=== PATIENT | female | born 1980 | race Caucasian/White ===

== ENCOUNTER 2022-10-03 22:15 | Inpatient (IN) ==
--- NOTE | 2022-10-03 22:43 | DR.EXTPAIN ---
HPI Time seen Time Seen by Provider: 10/03/22 22:43 PCP Primary Care Physician: FATOUMATA HPI Comment HPI Comment: Believes something was stuck under her lt middle fingernail nine days ago and swelling in finger has worsened leading to swelling in hand; unable to take the pain any longer; has noted some drainge; no fever, chills, numbness/tingling. Complaint/Symptoms Chief Complaint:: PT AMBULATORY IN ED WITH C/O LEFT MIDDLE FINGER PAIN. PT STATES SHE WAS CLEANING YARDS SUNDAY AND SOMETHING STUCK HER UNDER HER FINGERNAIL. FINGER SWOLLEN AND DRAINING. COVID-19 Coronavirus risk:travel/contact w/high risk person: No Has patient experienced Coronavirus symptoms: No Source History Provided: Patient Mode of arrival Mode of Arrival: Ambulatory Timing Onset of Chief Complaint: 10/01/22 PMH PMH Past Medical History: No Past Surgical History: Yes Surgical History: Ortho Surgery and Tonsillectomy Family History History of Family Medical Conditions: Yes Family Medical History: Diabetes Mellitus and Hypertension Social History Does patient currently use any type of tobacco product: Yes Have you used tobacco products in the last 12 months: Yes Type of Tobacco Use: Cigarettes Does any household member use tobacco: No Alcohol Use: Occasionally Do you use any recreational Drugs:: No Lives With: Family Lives Where: Home Travel Risk Coronavirus risk:travel/contact w/high risk person: No Has patient experienced Coronavirus symptoms: No Infectious screening In the last 2 months have you had wt loss of >10#?: NO Have you had fever, night sweats or hemotysis?: No Have you traveled outside the country in the last 6 months?: No Isolation: Standard ROS Review of Systems Constitutional: No Symptoms Reported Eyes: No Symptoms Reported ENTM: No Symptoms Reported Respiratoy: No Symptoms Reported Cardiovascular: No Symptoms Reported Gastrointestinal/Abdominal: No Symptoms Reported Genitourinary: No Symptoms Reported Neurological: No Symptoms Reported Integumentary: No Symptoms Reported Hematologic/Lymphatic: No Symptoms Reported Endocrine: No Symptoms Reported Psychiatric: No Symptoms Reported PE Vital Signs Vitals: Temperature 97.9 F Pulse Rate 79 Respiratory Rate 20 Blood Pressure [Left Arm] 173/95 Blood Pressure 218/111 O2 Sat by Pulse Oximetry 98 General Limitations: No Limitations General Appearance: Alert and In No Apparent Distress Head Head Exam: Normal Inspection Eyes Eye exam: Normal Appearance ENT ENT Exam: Normal Exam Neck Neck Exam: Normal Inspection Chest Chest Inspection: Normal Inspection Respiratory Respiratory Exam: Normal Lung Sounds Bilat Cardiovascular Cardiovascular Exam: Regular Rate and Normal Rhythm Abdominal Exam Abdominal Exam: Normal Inspection, Normal Bowel Sounds and Soft Extremities Extremities Exam: Tenderness, Normal Capillary Refill and Edema (lt hand swollen , hot with middle finger red with drainage and tenderness) Back Back Exam: Normal Inspection Neurological Neurological Exam: Alert, Oriented X3 and CN II-XII Intact Psychiatric Psychiatric Exam: Normal Affect and Normal Mood Skin Skin Exam: Warm, Dry, Intact and Normal Color COURSE Consultation Call Returned: 02:39 (Dr Gonsalez accepts admission.) ROR Labs Reviewed Result Diagrams: 10/03/22 22:54 10/03/22 22:54 Laboratory: 10/03/22 23:06 Finger - Left Middle Wound Gram Stain - Final WBC 14.9 X10^3/uL (3.6-10.0) H 10/03/22 22:54 RBC 4.32 X10^6/uL (3.5-5.4) 10/03/22 22:54 Hgb 12.9 g/dL (12.0-16.0) 10/03/22 22:54 Hct 37.4 % (36.0-47.0) 10/03/22 22:54 MCV 86.7 fL (80.0-100.0) 10/03/22 22:54 MCH 30.0 pg (27.0-34.0) 10/03/22 22:54 MCHC 34.6 g/dL (33.0-35.0) 10/03/22 22:54 RDW 14.7 % (11.6-16.5) 10/03/22 22:54 Plt Count 458 X10^3/uL (150.0-450.0) H 10/03/22 22:54 MPV 6.8 fL (7.4-11.0) L 10/03/22 22:54 Neut % (Auto) 74.3 % (42.0-75.0) 10/03/22 22:54 Lymph % (Auto) 19.4 % (21.0-51.0) L 10/03/22 22:54 [place] % (Auto) 4.6 % (0.0-13.0) 10/03/22 22:54 Eos % (Auto) 1.2 % (0.9-2.9) 10/03/22 22:54 Baso % (Auto) 0.5 % (0.2-1.0) 10/03/22 22:54 Neut # (Auto) 11.1 x10^3/uL (2.2-4.8) H 10/03/22 22:54 Lymph # (Auto) 2.9 X10^3/uL (1.3-2.9) 10/03/22 22:54 [place] # (Auto) 0.7 x10^3/uL (0.3-0.8) 10/03/22 22:54 Eos # (Auto) 0.2 x10^3/uL (0.0-0.2) 10/03/22 22:54 Baso # (Auto) 0.1 X10^3/uL (0.0-0.1) 10/03/22 22:54 Absolute Nucleated RBC 0.0 /100WBC 10/03/22 22:54 ESR 46 MM/HOUR (0-20) H 10/03/22 22:54 Sodium 141 mmol/L (136-145) 10/03/22 22:54 Corrected Sodium 142 mmol/L (136-145) 10/03/22 22:54 Potassium 2.8 mmol/L (3.5-5.1) L* 10/03/22 22:54 Chloride 102 mmol/L (98-107) 10/03/22 22:54 Carbon Dioxide 30.7 mmol/L (21-32) 10/03/22 22:54 BUN 15 mg/dL (7-18) 10/03/22 22:54 Creatinine 0.63 mg/dL (0.55-1.02) 10/03/22 22:54 Est GFR (MDRD) Af Amer > 60 (>60) 10/03/22 22:54 Est GFR (MDRD) Non-Af > 60 (>60) 10/03/22 22:54 Glucose 147 mg/dL (65-99) H 10/03/22 22:54 Calcium 8.9 mg/dL (8.5-10.1) 10/03/22 22:54 Corrected Calcium TNP 10/03/22 22:54 Total Bilirubin 0.10 mg/dL (0.2-1.0) L 10/03/22 22:54 AST 11 Units/L (15-37) L 10/03/22 22:54 ALT 13 Units/L (12-78) 10/03/22 22:54 Alkaline Phosphatase 134 Units/L (46-116) H 10/03/22 22:54 Total Protein 7.7 g/dL (6.4-8.2) 10/03/22 22:54 Albumin 3.7 g/dL (3.4-5.0) 10/03/22 22:54 Globulin 4.0 g/dL (2.5-4.5) 10/03/22 22:54 Albumin/Globulin Ratio 0.9 Ratio (1.1-2.1) L 10/03/22 22:54 XRAY XRAY Interpreted by: Radiologist X-ray Results: hand xr: There is no evidence of fracture or joint dislocation. Opioid Opioid Risk Tool Age (Doug box if 16-45): Yes History of Preadolescent Sexual Abuse: No Total: 1 Total Score Risk Category: Low Risk Copyright: Hieu OQUENDO predicting aberrant behaviors Discharge Plan Diagnosis Discharge Problem: Cellulitis of finger of left hand, Hypokalemia Discharge Plan Patient Disposition: 09 ADMITTED INPATIENT Condition: Stable Prescriptions: No Action [facility] Concerns: Post Hospitalization: new medications and changes needed to prevent readmission or further decline. Pt educated and given instructions on all concerns. Plan of Treatment: Continue with present treatment and follow up plan. Pt is to keep follow up appointment as instructed and take medications as ordered. Orders to Discharge Patient Discharge Orders: Discharge (Routine); Ordered 10/04/22 Ordered By: Anu Gonzalez Follow ups/Referrals Follow ups/Referrals: [facility],None [Primary Care Provider] - 3 days
[2022-10-03] MEDS ORDERED: NORCO 5/325 MG TAB PO ONE (22:48)
[2022-10-03] MEDS ORDERED: VANCOMYCIN IV *PREMIX 1 G/200 ML BAG 1 G/200 ML PIGGYBACK IV ONE ×2 (22:49→23:00)
[2022-10-03] MEDS ORDERED: NORCO 5/325 MG TAB ONE (22:59)
[2022-10-03 23:02] LABS: BASOPHILS # (AUTO) 0.1 X10^3/uL (0.0-0.1); BASOPHILS % (AUTO) 0.5 % (0.2-1.0); EOSINOPHILS # (AUTO) 0.2 x10^3/uL (0.0-0.2); EOSINOPHILS % (AUTO) 1.2 % (0.9-2.9); HEMATOCRIT 37.4 % (36.0-47.0); HEMOGLOBIN 12.9 g/dL (12.0-16.0); LYMPHOCYTES # (AUTO) 2.9 X10^3/uL (1.3-2.9); LYMPHOCYTES % (AUTO) 19.4 % (21.0-51.0); MEAN CORPUSCULAR HGB CONC 34.6 g/dL (33.0-35.0); MEAN CORPUSCULAR VOLUME 86.7 fL (80.0-100.0); MEAN PLATELET VOLUME 6.8 fL (7.4-11.0); MONOCYTES # (AUTO) 0.7 x10^3/uL (0.3-0.8); MONOCYTES % (AUTO) 4.6 % (0.0-13.0); NEUTROPHILS # (AUTO) 11.1 x10^3/uL (2.2-4.8); NEUTROPHILS % (AUTO) 74.3 % (42.0-75.0); PLATELET COUNT 458 X10^3/uL (150.0-450.0); RED BLOOD COUNT 4.32 X10^6/uL (3.5-5.4); RED CELL DISTRIBUTION WIDTH 14.7 % (11.6-16.5); WHITE BLOOD COUNT 14.9 X10^3/uL (3.6-10.0)
[2022-10-03 23:19] LABS: ALANINE AMINOTRANSFERASE 13 Units/L (12-78); ALBUMIN 3.7 g/dL (3.4-5.0); ALKALINE PHOSPHATASE 134 Units/L (46-116); ASPARTATE AMINO TRANSFERASE 11 Units/L (15-37); BLOOD UREA NITROGEN 15 mg/dL (7-18); CALCIUM 8.9 mg/dL (8.5-10.1); CARBON DIOXIDE 30.7 mmol/L (21-32); CHLORIDE 102 mmol/L (98-107); COR NA(FOR HYPERGLY) 142 mmol/L (136-145); CREATININE 0.63 mg/dL (0.55-1.02); GLUCOSE 147 mg/dL (65-99); SODIUM 141 mmol/L (136-145); TOTAL PROTEIN 7.7 g/dL (6.4-8.2); eGFR NON BLACK RACES > 60 (>60)
[2022-10-03 23:20] LABS: ERYTHROCYTE SEDIMENTATION RATE 46 MM/HOUR (0-20)
[2022-10-03 23:22] LABS: POTASSIUM 2.8 mmol/L (3.5-5.1)
[2022-10-03] MEDS ORDERED: K-DUR TAB 20 MEQ PO STA ×2 (23:29→23:32)
[2022-10-03] MEDS ORDERED: K-DUR TAB 20 MEQ PO ONE (23:39)
[2022-10-03] MEDS ORDERED: NS + KCL 40 MEQ/L 1,000 ML IV ONE (23:43)
[2022-10-04] MEDS: NS + KCL 40 MEQ/L 1,000 ML IV SCH ×3 (00:27→12:03)
--- NOTE | 2022-10-04 02:05 | RAD ---
STUDY: HAND, LEFTCOMPARISON: NoneHISTORY: PT STATES SHE WAS CLEANING YARDS SUNDAY AND SOMETHING STUCK HER UNDER HER FINGERNAIL. FINGER SWOLLEN AND DRAINING.FINDINGS:There is no evidence of fracture or joint dislocation.There is no evidence of an embedded radiopaque foreign body.However there is soft tissue swelling noted.IMPRESSION:There is no evidence of fracture or joint dislocation.Electronically signed by: Karan Long (Oct 04, 2022 02:03:40)
[2022-10-04] MEDS ORDERED: VANCOMYCIN IV *PREMIX 1 G/200 ML BAG 1 G/200 ML PIGGYBACK IV SCH (02:44)
[2022-10-04] MEDS ORDERED: PHARMACY CONSULT - VANCOMYCIN XX SCH (03:00)
[2022-10-04] MEDS ORDERED: NORCO 5/325 MG TAB ONE (03:36)
[2022-10-04] MEDS: NORCO 5/325 MG TAB PO PRN ×2 (03:45→07:51)
[2022-10-04 04:01] VITALS: BMI 27.0
[2022-10-04] MEDS ORDERED: CATAPRES TAB 0.1 MG PO ONE (04:28)
--- NOTE | 2022-10-04 04:45 | EKG ---
Test Reason : HYPERTENSION PROTOCOL Blood Pressure : */* mmHG Vent. Rate : 69 BPM Atrial Rate : 69 BPM P-R Int : 124 ms QRS Dur : 70 ms QT Int : 420 ms P-R-T Axes : 60 62 130 degrees QTc Int : 450 ms Normal sinus rhythm Possible Left atrial enlargement Cannot rule out Anterior infarct , age undetermined Abnormal ECG No previous ECGs available Confirmed by Trevon Quinonez ([id number]) on 10/04/2022 6:37:41 PM Referred By: Confirmed By: Trevon Quinonez
[2022-10-04] MEDS ORDERED: MORPHINE SULFATE INJ 2 MG INJ IVP PRN (05:06)
[2022-10-04] MEDS ORDERED: MORPHINE SULFATE INJ 2 MG INJ ONE (05:12)
[2022-10-04] MEDS ORDERED: APRESOLINE INJ 20 MG VIAL IVP ONE (05:40)
[2022-10-04] MEDS ORDERED: APRESOLINE INJ 20 MG VIAL ONE ×2 (05:51→08:36)
[2022-10-04 06:08] LABS: BASOPHILS # (AUTO) 0.1 X10^3/uL (0.0-0.1); EOSINOPHILS # (AUTO) 0.2 x10^3/uL (0.0-0.2); EOSINOPHILS % (AUTO) 1.3 % (0.9-2.9); HEMATOCRIT 34.5 % (36.0-47.0); HEMOGLOBIN 11.7 g/dL (12.0-16.0); LYMPHOCYTES # (AUTO) 4.6 X10^3/uL (1.3-2.9); LYMPHOCYTES % (AUTO) 34.6 % (21.0-51.0); MEAN CORPUSCULAR HEMOGLOBIN 29.4 pg (27.0-34.0); MEAN CORPUSCULAR HGB CONC 33.9 g/dL (33.0-35.0); MEAN CORPUSCULAR VOLUME 86.9 fL (80.0-100.0); MEAN PLATELET VOLUME 6.9 fL (7.4-11.0); MONOCYTES # (AUTO) 0.8 x10^3/uL (0.3-0.8); MONOCYTES % (AUTO) 5.8 % (0.0-13.0); NEUTROPHILS # (AUTO) 7.7 x10^3/uL (2.2-4.8); NEUTROPHILS % (AUTO) 57.3 % (42.0-75.0); PLATELET COUNT 419 X10^3/uL (150.0-450.0); RED BLOOD COUNT 3.97 X10^6/uL (3.5-5.4); RED CELL DISTRIBUTION WIDTH 14.4 % (11.6-16.5); WHITE BLOOD COUNT 13.4 X10^3/uL (3.6-10.0)
[2022-10-04 06:14] LABS: ALANINE AMINOTRANSFERASE 12 Units/L (12-78); ALBUMIN 3.1 g/dL (3.4-5.0); ALKALINE PHOSPHATASE 115 Units/L (46-116); ASPARTATE AMINO TRANSFERASE 10 Units/L (15-37); BLOOD UREA NITROGEN 9 mg/dL (7-18); CHLORIDE 107 mmol/L (98-107); COR CA(FOR HYPOALB) 8.7 mg/dL (8.5-10.1); CREATININE 0.47 mg/dL (0.55-1.02); GLUCOSE 94 mg/dL (65-99); MAGNESIUM 1.7 mg/dL (2.0-2.9); POTASSIUM 3.4 mmol/L (3.5-5.1); SODIUM 142 mmol/L (136-145); TOTAL PROTEIN 6.4 g/dL (6.4-8.2); eGFR NON BLACK RACES > 60 (>60)
[2022-10-04] MEDS ORDERED: POTASSIUM CHL 40 MEQ/NS 0.45% 500 ML IV PRN (07:05)
[2022-10-04] MEDS ORDERED: POTASSIUM CHL 60 MEQ/NS 0.45% 500 ML IV PRN (07:05)
[2022-10-04] MEDS ORDERED: K-RIDER 10 MEQ/NS 100 ML 10 MEQ/100 ML BAG IV PRN (07:05)
[2022-10-04] MEDS ORDERED: K-DUR TAB 20 MEQ PO PRN (07:05)
[2022-10-04] MEDS ORDERED: POTASSIUM CHLORIDE LIQ 20 MEQ UDC PO PRN (07:05)
[2022-10-04] MEDS ORDERED: KLOR-CON PO PRN (07:05)
[2022-10-04] MEDS ORDERED: MICRO K EXTEN CAP 10 MEQ PO PRN (07:05)
[2022-10-04] MEDS: APRESOLINE INJ 20 MG VIAL IVP SCH ×4 (08:30→20:19)
[2022-10-04] MEDS: VANCOMYCIN IV *PREMIX 1 G/200 ML BAG 1 G/200 ML PIGGYBACK IV SCH ×2 (08:32→20:19)
[2022-10-04] MEDS ORDERED: APRESOLINE INJ 20 MG VIAL IVP PRN (08:33)
[2022-10-04] MEDS ORDERED: DILAUDID INJ ONE (08:36)
[2022-10-04] MEDS: DILAUDID INJ IVP PRN ×4 (08:39→20:20)
[2022-10-04] MEDS: ZOFRAN INJ 4 MG VIAL IVP PRN ×2 (08:42→17:23)
[2022-10-04] MEDS ORDERED: VANCOMYCIN IV *PREMIX 750 mg/150 ML BAG 750 MG/150 ML PIGGYBACK IV SCH (09:00)
--- NOTE | 2022-10-04 14:02 | CT ---
HISTORYLEFT HAND 3RD DIGIT FOREIGN BODY, EDEMA, REDNESS AND PAINSTUDYUPPER EXT WITH CONCOMPARISONLeft hand radiograph from 1 day prior.TECHNIQUECT of the left upper extremity with contrast with sagittal and coronal reformats. [id number] is from the distal arm through the distal phalanges dose reduction techniques including Automated Exposure Control (AEC) and adjustment of mA and kV were utilized.FINDINGSPatient's hand is oblique within the field of view limiting evaluation. There is moderate motion artifact at the distal phalanx which limits evaluation. There is soft tissue swelling at the 3rd distal phalanx image 26 series 5. No discernible radiopaque foreign body in this location. No discernible abscess. No acute fracture, malalignment, or aggressive osseous lesion.IMPRESSIONLimited study as above. No discernible radiopaque foreign body or abscess. Consider repeat study if patient is able to hold still. Soft tissue swelling about the distal 3rd digit may be due to cellulitis.Electronically signed by: Steven Alvarez (Oct 04, 2022 14:00:50)
--- NOTE | 2022-10-04 15:18 | DR.H&P ---
H&P History & Physical for Day of: H&P Date: 10/04/22 Chief Complaint Chief Complaint: left middle finger pain and swelling Allergies Allergies Allergy/AdvReac Type Severity Reaction Status Date / Time No Known Drug Allergies Allergy Verified 01/12/18 04:16 History of Present Illness History of Present Illness: Pt is a 41 year old female with no past medical history presenting after having worsening pain and swelling in her left middle finger. She reports symptoms started on Sunday when she was outside and felt like something like a stick or twig punctured her finger. Since she has had pain. Noticed yesterday swelling, redness, and some discharge. Labs/imaging: Wbc 13.4, Hgb 11.7, Plt 419, Na 142, K 3.4, Creatinine 0.47, Glucose 94, Magnesium 1.7, Wound culture pending. Hand XR: soft tissue swelling noted. CT of the hand was obtained that revealed: No discernible radiopaque foreign body or abscess. Consider repeat study if patient is able to hold still. Soft tissue swelling about the distal 3rd digit may be due to cellulitis. Pt was started on IV anti biotics: Vancomycin. IV dilaudid prn for pain. Surgery consulted for further evaluation. Continue to closely monitor and follow up labs. Past Surgical History Surgical History: Ortho Surgery Family History Family Medical History: Diabetes Mellitus Social History Does patient currently use any type of tobacco product: Yes Have you used tobacco products in the last 12 months: Yes Type of Tobacco Use: Cigarettes Does any household member use tobacco: No Alcohol Use: None Drug Use: None Medications Home Medications: No Known Drug Allergies Allergy (Verified 01/12/18 04:16) CONTINUE taking the following medications NK 10/03/22 [History] Labs Result Diagrams: 10/04/22 05:45 10/04/22 05:45 Labs: 10/03/22 23:06 Finger - Left Middle Wound Gram Stain - Final Laboratory WBC 13.4 X10^3/uL (3.6-10.0) H 10/04/22 05:45 RBC 3.97 X10^6/uL (3.5-5.4) 10/04/22 05:45 Hgb 11.7 g/dL (12.0-16.0) L 10/04/22 05:45 Hct 34.5 % (36.0-47.0) L 10/04/22 05:45 MCV 86.9 fL (80.0-100.0) 10/04/22 05:45 MCH 29.4 pg (27.0-34.0) 10/04/22 05:45 MCHC 33.9 g/dL (33.0-35.0) 10/04/22 05:45 RDW 14.4 % (11.6-16.5) 10/04/22 05:45 Plt Count 419 X10^3/uL (150.0-450.0) 10/04/22 05:45 MPV 6.9 fL (7.4-11.0) L 10/04/22 05:45 Neut % (Auto) 57.3 % (42.0-75.0) 10/04/22 05:45 Lymph % (Auto) 34.6 % (21.0-51.0) 10/04/22 05:45 [place] % (Auto) 5.8 % (0.0-13.0) 10/04/22 05:45 Eos % (Auto) 1.3 % (0.9-2.9) 10/04/22 05:45 Baso % (Auto) 1.0 % (0.2-1.0) 10/04/22 05:45 Neut # (Auto) 7.7 x10^3/uL (2.2-4.8) H 10/04/22 05:45 Lymph # (Auto) 4.6 X10^3/uL (1.3-2.9) H 10/04/22 05:45 [place] # (Auto) 0.8 x10^3/uL (0.3-0.8) 10/04/22 05:45 Eos # (Auto) 0.2 x10^3/uL (0.0-0.2) 10/04/22 05:45 Baso # (Auto) 0.1 X10^3/uL (0.0-0.1) 10/04/22 05:45 Absolute Nucleated RBC 0.0 /100WBC 10/04/22 05:45 ESR 46 MM/HOUR (0-20) H 10/03/22 22:54 Sodium 142 mmol/L (136-145) 10/04/22 05:45 Corrected Sodium TNP 10/04/22 05:45 Potassium 3.4 mmol/L (3.5-5.1) L 10/04/22 05:45 Chloride 107 mmol/L (98-107) 10/04/22 05:45 Carbon Dioxide 28.0 mmol/L (21-32) 10/04/22 05:45 BUN 9 mg/dL (7-18) 10/04/22 05:45 Creatinine 0.47 mg/dL (0.55-1.02) L 10/04/22 05:45 Est GFR (MDRD) Af Amer > 60 (>60) 10/04/22 05:45 Est GFR (MDRD) Non-Af > 60 (>60) 10/04/22 05:45 Glucose 94 mg/dL (65-99) 10/04/22 05:45 Calcium 8.0 mg/dL (8.5-10.1) L 10/04/22 05:45 Corrected Calcium 8.7 mg/dL (8.5-10.1) 10/04/22 05:45 Magnesium 1.7 mg/dL (2.0-2.9) L 10/04/22 05:45 Total Bilirubin 0.10 mg/dL (0.2-1.0) L 10/04/22 05:45 AST 10 Units/L (15-37) L 10/04/22 05:45 ALT 12 Units/L (12-78) 10/04/22 05:45 Alkaline Phosphatase 115 Units/L (46-116) 10/04/22 05:45 Total Protein 6.4 g/dL (6.4-8.2) 10/04/22 05:45 Albumin 3.1 g/dL (3.4-5.0) L 10/04/22 05:45 Globulin 3.3 g/dL (2.5-4.5) 10/04/22 05:45 Albumin/Globulin Ratio 0.9 Ratio (1.1-2.1) L 10/04/22 05:45 Review of Systems Constitutional: No Symptoms Reported Eyes: No Symptoms Reported ENT: No Symptoms Reported Respiratory: No Symptoms Reported Cardiovascular: No Symptoms Reported Gastrointestinal: No Symptoms Reported Genitourinary: No Symptoms Reported Musculoskeletal: Hand Pain (Left 3rd digit pain, redness, swelling) Skin: No Symptoms Reported Neurological: No Symptoms Reported Physical Exam Vital Signs: Temperature 97.8 F Pulse Rate [Right Brachial] 84 Pulse Rate 79 Respiratory Rate 18 Blood Pressure [Left Arm] 144/68 Blood Pressure 218/111 O2 Sat by Pulse Oximetry 98 Oriented: Normal Eyes: Normal Ear: Normal Nose: Normal Throat: Normal Respiratory: Clear Throughout Cardiovascular: Normal : Normal Auscultation: Bowel Sounds: Normal Palpation: Normal Tenderness: Normal Skin: Normal Musculoskeletal: Hand (Left 3rd digit tenderness, erythema, and edema) Psychiatric: Normal Mood Description: Calm and Appropriate Affect: Normal Speech Pattern: Clear and Appropriate Assessment/Plan (1) Cellulitis of finger of left hand: Status: Acute Plan: Antibiotics: IV Vancomycin Wound culture pending Surgery consulted Review H&P Reviewed: Yes Patient was examined?: Yes
[2022-10-04] MEDS ORDERED: ADACEL or BOOSTRIX TDaP VACCINE IM ONE (19:37)
[2022-10-04] MEDS ORDERED: MARCAINE 0.25% INJ ONE (20:28)
[2022-10-04] MEDS ORDERED: BETADINE SOLN ONE (20:29)
[2022-10-04] MEDS ORDERED: FENTANYL VIAL INJ 100 mcg ONE (20:30)
[2022-10-04] MEDS ORDERED: DIPRIVAN VIAL 20 ML ONE (20:30)
[2022-10-04] MEDS ORDERED: VERSED ONE (20:30)
[2022-10-04] MEDS ORDERED: LR 1,000 ML IV 1,000 ML IV ONE (21:01)
--- NOTE | 2022-10-04 21:16 | DR.CONSULT ---
CONSULT Consultation for Day of: Date: 10/04/22 Chief Complaint Chief Complaint: Cellulitis, infected left middle finger. Allergies Allergies Allergy/AdvReac Type Severity Reaction Status Date / Time No Known Drug Allergies Allergy Verified 01/12/18 04:16 History of Present Illness History of Present Illness: 41 year old female who was working in her yard 3 days ago and had a puncture with presumably a piece of wood or stick while she was working in the garden. She has had since significant swelling ,redness and significant discloratio of the skin of the left long finger especially on the volar surface. She denies diabetes. She does smoke. She denies drug use. Past Surgical History Surgical History: Ortho Surgery Family History Family Medical History: Diabetes Mellitus Social History Does patient currently use any type of tobacco product: Yes Have you used tobacco products in the last 12 months: Yes Type of Tobacco Use: Cigarettes Does any household member use tobacco: No Alcohol Use: None Drug Use: None Medications Home Medications: No Known Drug Allergies Allergy (Verified 01/12/18 04:16) CONTINUE taking the following medications NK 10/03/22 [History] Review of Systems Constitutional: See HPI Eyes: No Symptoms Reported ENT: No Symptoms Reported Respiratory: No Symptoms Reported Cardiovascular: No Symptoms Reported Gastrointestinal: No Symptoms Reported Genitourinary: No Symptoms Reported Musculoskeletal: No Symptoms Reported Skin: See HPI Neurological: No Symptoms Reported Physical Exam Vital Signs: Temperature 98.6 F Pulse Rate [Right Brachial] 62 Pulse Rate 79 Respiratory Rate 18 Blood Pressure [Left Arm] 170/75 Blood Pressure 218/111 O2 Sat by Pulse Oximetry 96 Oriented: Normal, Time, Person, Place and Other (appears to be in pain. ) Eyes: Normal Ear: Normal Nose: Normal Throat: Normal Respiratory: Clear Throughout Cardiovascular: Normal : Normal Auscultation: Bowel Sounds: Normal Palpation: Normal Tenderness: Normal Skin: Other (see description left middle finger above ) Musculoskeletal: Normal Psychiatric: Anxiety Mood Description: Fearful and Anxious Affect: Normal Speech Pattern: Clear Plan (1) Cellulitis of finger of left hand: Status: Acute Narrative Support Text: Continue IV antibiotics, incise and drain left middle finger. CT and plain films do show any obvious foreign bodies in the left middle finger
--- NOTE | 2022-10-04 21:36 | OR.IMMED ---
IMMEDIATE POST-OP NOTE Immediate Post-Op Note Pre-Op Diagnosis: cellulitis left long finger Post-Op Diagnosis: cellulitis left long finger with abscess of the volar distal phalanx subcutaneous tissue Procedure: Incision, drainage and debridement left long finger Description of Procedure: see operative summary Surgeon/Flat Cutter: Gabino Findings: as above Estimated Blood Loss: minimal Complications: none Progress Notes: Return to floor, continue Iv antibiotics, dressing changes left middle finger daily Final Diagnosis: as above
--- NOTE | 2022-10-05 01:07 | DR.OPNOTE ---
OP NOTE Pre-Op Diagnosis: abscess / cellulitis left middle finger Post-Op Diagnosis: same Procedure Date Date Of Procedure: 10/05/22 Procedure: PROCEDURE : INCISE AND DRAIN ABSCESS LEFT MIDDLE FINGER, DEBRIDE LEFT MIDDLE FINGER. NARRATIVE : Patient was taken to the operative suite and placed in the Supine position. The patient was given intravenous sedation supervised by myself. Time out for the procedure obtained . An Esmark used to exsanguinate the left arm and the volar surface of the skin of the distal phalanx of the middle finger opened with a number 15 knife blade and gross pus evacuated . Cultures were obtained. This appeared to go down to the bone of the distal phalanx. Hemostasis obtained with electrocautery. The necrotic skin of the distal middle finger was debrided sharply as an excisional debridement . The abscess cavity packed with 1/4 inch Nu gauze packing and a bulk dressing applied to the left hand. Patient taken back to her room to continue IV antibiotics and daily dressing changes. Type of Anesthesia: Local (0.5 % plain Marcaine ) Anesthesia Comment: plus MAC Findings: abscess volar distal abscess left middle finger with cellulitis left middle finger and necrotic skin. Specimen/Pathology: cultures Type of Fluids Used:: Lactated Ringers EBL: minimal Cultures: yes Complications:: none Needle/Sponge Count:: correct Disposition/Condition: Pt. tolerated procedure without difficulty. Taken back to her room in stable condition.
[2022-10-05] MEDS: NS + KCL 40 MEQ/L 1,000 ML IV SCH ×3 (03:18→14:02)
[2022-10-05] MEDS: APRESOLINE INJ 20 MG VIAL IVP SCH ×6 (03:18→22:02)
[2022-10-05] MEDS: DILAUDID INJ IVP PRN ×5 (03:18→22:22)
[2022-10-05 05:01] LABS: BASOPHILS # (AUTO) 0.1 X10^3/uL (0.0-0.1); BASOPHILS % (AUTO) 0.6 % (0.2-1.0); EOSINOPHILS # (AUTO) 0.1 x10^3/uL (0.0-0.2); EOSINOPHILS % (AUTO) 0.6 % (0.9-2.9); HEMATOCRIT 32.4 % (36.0-47.0); HEMOGLOBIN 11.1 g/dL (12.0-16.0); LYMPHOCYTES % (AUTO) 33.3 % (21.0-51.0); MEAN CORPUSCULAR HEMOGLOBIN 29.7 pg (27.0-34.0); MEAN CORPUSCULAR HGB CONC 34.1 g/dL (33.0-35.0); MEAN CORPUSCULAR VOLUME 87.2 fL (80.0-100.0); MONOCYTES # (AUTO) 0.7 x10^3/uL (0.3-0.8); MONOCYTES % (AUTO) 5.6 % (0.0-13.0); NEUTROPHILS # (AUTO) 7.1 x10^3/uL (2.2-4.8); NEUTROPHILS % (AUTO) 59.9 % (42.0-75.0); PLATELET COUNT 439 X10^3/uL (150.0-450.0); RED BLOOD COUNT 3.72 X10^6/uL (3.5-5.4); RED CELL DISTRIBUTION WIDTH 14.9 % (11.6-16.5); WHITE BLOOD COUNT 11.9 X10^3/uL (3.6-10.0)
[2022-10-05 05:14] LABS: ALANINE AMINOTRANSFERASE 12 Units/L (12-78); ALKALINE PHOSPHATASE 113 Units/L (46-116); ASPARTATE AMINO TRANSFERASE 10 Units/L (15-37); BLOOD UREA NITROGEN 7 mg/dL (7-18); CALCIUM 8.6 mg/dL (8.5-10.1); CARBON DIOXIDE 26.3 mmol/L (21-32); CHLORIDE 104 mmol/L (98-107); COR CA(FOR HYPOALB) 9.4 mg/dL (8.5-10.1); CREATININE 0.48 mg/dL (0.55-1.02); GLUCOSE 103 mg/dL (65-99); POTASSIUM 3.3 mmol/L (3.5-5.1); SODIUM 138 mmol/L (136-145); TOTAL PROTEIN 6.3 g/dL (6.4-8.2); eGFR NON BLACK RACES > 60 (>60)
[2022-10-05] MEDS: ZOFRAN INJ 4 MG VIAL IVP PRN ×3 (07:41→22:30)
[2022-10-05] MEDS: LOVENOX INJ 40 MG SYR SC SCH (08:17)
[2022-10-05] MEDS ORDERED: PHARMACY COMMENT IV NR (08:30)
[2022-10-05 09:10] LABS: CREATININE 0.44 mg/dL (0.55-1.02); VANCOMYCIN,TROUGH 4.8 ug/mL (15-20)
[2022-10-05] MEDS: VANCOMYCIN IV *PREMIX 1 G/200 ML BAG 1 G/200 ML PIGGYBACK IV SCH ×3 (09:52→22:00)
--- NOTE | 2022-10-05 12:46 | PCM.PROG ---
Progress Note Progress Note for Day of Date of Exam: 10/05/22 Subjective Subjective: Pt is a 41 year old female admitted for abscess and cellulitis of the left 3rd finger. She is s/p incision and drainage. This morning she is resting in bed comfortably. Labs/imaging: Wbc 11.9, Hgb 11.1, Plt 439, Na 138, K 3.3, Creatinine 0.48, Glucose 103, Wound culture pending. CT of the hand was obtained that revealed: No discernible radiopaque foreign body or abscess. Soft tissue swelling about the distal 3rd digit may be due to cellulitis. Pt is currently receiving IV antibiotics: Vancomycin. IV dilaudid prn for pain. Surgery following. Will need continued antibiotics, wound care, and dressing changes. Continue to closely monitor and follow up labs. Past Medical Family Social History Allergies: Allergies No Known Drug Allergies Allergy (Verified 01/12/18 04:16) Review of Systems ROS changes noted: see HPI Vital Signs and I&O's Vital Signs: Temperature 98.4 F Pulse Rate [Right Brachial] 72 Pulse Rate 79 Respiratory Rate 18 Blood Pressure [Left Arm] 154/70 Blood Pressure 218/111 O2 Sat by Pulse Oximetry 95 Intake and Output: Intake & Output 10/02/22 10/03/22 10/04/22 10/05/22 23:59 23:59 23:59 23:59 Intake Total 2531 / 2531 1275 / 1275 Output Total 500 / 500 Balance 2030 / 2030 1275 / 1275 Physical Exam Oriented: Normal, Time, Person, Place and Other (appears to be in pain. ) Eyes: Normal Ear: Normal Nose: Normal Throat: Normal Respiratory: Normal Cardiovascular: Normal : Normal Auscultation: Bowel Sounds: Normal Tenderness: Normal Skin: Other (left middle finger wound dressing) Musculoskeletal: Normal Psychiatric: Normal Mood Description: Calm Affect: Normal Speech Pattern: Clear and Appropriate Laboratory and Diagnostics Result Diagrams: 10/05/22 04:28 10/05/22 08:40 Labs: 10/03/22 23:19 Blood Blood Culture - Preliminary 10/03/22 23:13 Blood Blood Culture - Preliminary 10/03/22 23:06 Finger - Left Middle Wound Gram Stain - Final 10/03/22 23:06 Finger - Left Middle Wound Culture - Preliminary 10/04/22 21:23 Finger - Left Middle Wound Gram Stain - Final Laboratory WBC 11.9 X10^3/uL (3.6-10.0) H 10/05/22 04: RBC 3.72 X10^6/uL (3.5-5.4) 10/05/22 04: Hgb 11.1 g/dL (12.0-16.0) L 10/05/22 04: Hct 32.4 % (36.0-47.0) L 10/05/22 04: MCV 87.2 fL (80.0-100.0) 10/05/22 04: MCH 29.7 pg (27.0-34.0) 10/05/22 04: MCHC 34.1 g/dL (33.0-35.0) 10/05/22 04: RDW 14.9 % (11.6-16.5) 10/05/22 04: Plt Count 439 X10^3/uL (150.0-450.0) 10/05/22 04: MPV 7.0 fL (7.4-11.0) L 10/05/22 04: Neut % (Auto) 59.9 % (42.0-75.0) 10/05/22 04: Lymph % (Auto) 33.3 % (21.0-51.0) 10/05/22 04: [place] % (Auto) 5.6 % (0.0-13.0) 10/05/22 04: Eos % (Auto) 0.6 % (0.9-2.9) L 10/05/22 04: Baso % (Auto) 0.6 % (0.2-1.0) 10/05/22 04:28 Neut # (Auto) 7.1 x10^3/uL (2.2-4.8) H 10/05/22 04:28 Lymph # (Auto) 4.0 X10^3/uL (1.3-2.9) H 10/05/22 04:28 [place] # (Auto) 0.7 x10^3/uL (0.3-0.8) 10/05/22 04: Eos # (Auto) 0.1 x10^3/uL (0.0-0.2) 10/05/22 04:28 Baso # (Auto) 0.1 X10^3/uL (0.0-0.1) 10/05/22 04:28 Absolute Nucleated RBC 0.0 /100WBC 10/05/22 04:28 ESR 46 MM/HOUR (0-20) H 10/03/22 22:54 Sodium 138 mmol/L (136-145) 10/05/22 04:28 Corrected Sodium TNP 10/05/22 04:28 Potassium 3.3 mmol/L (3.5-5.1) L 10/05/22 04:28 Chloride 104 mmol/L (98-107) 10/05/22 04:28 Carbon Dioxide 26.3 mmol/L (21-32) 10/05/22 04:28 BUN 7 mg/dL (7-18) 10/05/22 04:28 Creatinine 0.44 mg/dL (0.55-1.02) L 10/05/22 08:40 Est GFR (MDRD) Af Amer > 60 (>60) 10/05/22 04:28 Est GFR (MDRD) Non-Af > 60 (>60) 10/05/22 04:28 Glucose 103 mg/dL (65-99) H 10/05/22 04:28 Calcium 8.6 mg/dL (8.5-10.1) 10/05/22 04:28 Corrected Calcium 9.4 mg/dL (8.5-10.1) 10/05/22 04:28 Magnesium 1.7 mg/dL (2.0-2.9) L 10/04/22 05:45 Total Bilirubin 0.20 mg/dL (0.2-1.0) 10/05/22 04:28 AST 10 Units/L (15-37) L 10/05/22 04:28 ALT 12 Units/L (12-78) 10/05/22 04:28 Alkaline Phosphatase 113 Units/L (46-116) 10/05/22 04:28 Total Protein 6.3 g/dL (6.4-8.2) L 10/05/22 04:28 Albumin 3.0 g/dL (3.4-5.0) L 10/05/22 04:28 Globulin 3.3 g/dL (2.5-4.5) 10/05/22 04:28 Albumin/Globulin Ratio 0.9 Ratio (1.1-2.1) L 10/05/22 04:28 Vancomycin Trough 4.8 ug/mL (15-20) L 10/05/22 08:40 Plan (1) Cellulitis of finger of left hand: Status: Acute Plan: Antibiotics: IV Vancomycin Wound culture pending Surgery consulted (2) Cellulitis and abscess of finger, unspecified: Status: Acute
--- NOTE | 2022-10-05 17:08 | NOTE.SOAP ---
Soap Note Note for Day of Date of Exam: 10/05/22 Subjective Data Subjective Data: S/p incision and drainage of abscess of the volar distal tuft of the left middle finger and s/p debridement of necrotic skin of this finger. Resting comfortably this AM. Objective Data Temperature: 98.3 F Pulse Rate: 70 Respiratory Rate: 18 Blood Pressure: 154/70 O2 Sat by Pulse Oximetry: 96 Objective Data: Dressing intact left hand. WBC=11.1 Assessment Assessment: Discussed dressing changes to be done daily with the nursing staff. Discussed findings with . Plan Plan: Continue IV antibiotics and daily dressing changes over the weekend .
[2022-10-06] MEDS: APRESOLINE INJ 20 MG VIAL IVP SCH ×6 (00:33→20:35)
[2022-10-06] MEDS: NS + KCL 40 MEQ/L 1,000 ML IV SCH ×4 (03:04→20:34)
[2022-10-06] MEDS: DILAUDID INJ IVP PRN ×5 (03:04→22:00)
[2022-10-06] MEDS ORDERED: PHARMACY COMMENT IV ONE (05:30)
[2022-10-06 06:10] LABS: BASOPHILS # (AUTO) 0.1 X10^3/uL (0.0-0.1); BASOPHILS % (AUTO) 0.6 % (0.2-1.0); EOSINOPHILS % (AUTO) 0.4 % (0.9-2.9); HEMATOCRIT 34.6 % (36.0-47.0); HEMOGLOBIN 11.7 g/dL (12.0-16.0); LYMPHOCYTES # (AUTO) 3.5 X10^3/uL (1.3-2.9); LYMPHOCYTES % (AUTO) 32.1 % (21.0-51.0); MEAN CORPUSCULAR HEMOGLOBIN 29.8 pg (27.0-34.0); MEAN CORPUSCULAR HGB CONC 33.9 g/dL (33.0-35.0); MEAN CORPUSCULAR VOLUME 87.8 fL (80.0-100.0); MONOCYTES # (AUTO) 0.7 x10^3/uL (0.3-0.8); MONOCYTES % (AUTO) 6.7 % (0.0-13.0); NEUTROPHILS # (AUTO) 6.5 x10^3/uL (2.2-4.8); NEUTROPHILS % (AUTO) 60.2 % (42.0-75.0); PLATELET COUNT 445 X10^3/uL (150.0-450.0); RED BLOOD COUNT 3.93 X10^6/uL (3.5-5.4); RED CELL DISTRIBUTION WIDTH 14.7 % (11.6-16.5); WHITE BLOOD COUNT 10.8 X10^3/uL (3.6-10.0)
[2022-10-06 06:15] LABS: CREATININE 0.51 mg/dL (0.55-1.02); VANCOMYCIN,TROUGH 13.4 ug/mL (15-20)
[2022-10-06 06:31] LABS: ALANINE AMINOTRANSFERASE 13 Units/L (12-78); ALBUMIN 2.8 g/dL (3.4-5.0); ALKALINE PHOSPHATASE 109 Units/L (46-116); ASPARTATE AMINO TRANSFERASE 9 Units/L (15-37); BLOOD UREA NITROGEN 8 mg/dL (7-18); CALCIUM 8.2 mg/dL (8.5-10.1); CARBON DIOXIDE 24.5 mmol/L (21-32); CHLORIDE 106 mmol/L (98-107); COR CA(FOR HYPOALB) 9.2 mg/dL (8.5-10.1); COR NA(FOR HYPERGLY) 140 mmol/L (136-145); GLUCOSE 122 mg/dL (65-99); POTASSIUM 3.8 mmol/L (3.5-5.1); SODIUM 139 mmol/L (136-145); TOTAL PROTEIN 6.2 g/dL (6.4-8.2); eGFR NON BLACK RACES > 60 (>60)
[2022-10-06] MEDS: ZOFRAN INJ 4 MG VIAL IVP PRN ×2 (09:20→22:00)
[2022-10-06] MEDS: VANCOMYCIN IV *PREMIX 1 G/200 ML BAG 1 G/200 ML PIGGYBACK IV SCH ×3 (09:20→22:00)
[2022-10-06] MEDS: LOVENOX INJ 40 MG SYR SC SCH (09:20)
[2022-10-06] MEDS: MAGNESIUM SULFATE 1 GRAM/100 mL PREMIX 1 G/100 ML BAG IV PRN ×2 (22:02→23:03)
[2022-10-07] MEDS: APRESOLINE INJ 20 MG VIAL IVP SCH ×7 (00:35→23:28)
[2022-10-07] MEDS: DILAUDID INJ IVP PRN ×4 (04:09→21:28)
[2022-10-07 05:17] LABS: BASOPHILS # (AUTO) 0.1 X10^3/uL (0.0-0.1); EOSINOPHILS # (AUTO) 0.1 x10^3/uL (0.0-0.2); EOSINOPHILS % (AUTO) 1.1 % (0.9-2.9); HEMATOCRIT 32.2 % (36.0-47.0); HEMOGLOBIN 11.2 g/dL (12.0-16.0); LYMPHOCYTES # (AUTO) 3.7 X10^3/uL (1.3-2.9); LYMPHOCYTES % (AUTO) 38.1 % (21.0-51.0); MEAN CORPUSCULAR HEMOGLOBIN 29.9 pg (27.0-34.0); MEAN CORPUSCULAR HGB CONC 34.6 g/dL (33.0-35.0); MEAN CORPUSCULAR VOLUME 86.5 fL (80.0-100.0); MEAN PLATELET VOLUME 6.6 fL (7.4-11.0); MONOCYTES # (AUTO) 0.7 x10^3/uL (0.3-0.8); MONOCYTES % (AUTO) 7.4 % (0.0-13.0); NEUTROPHILS # (AUTO) 5.1 x10^3/uL (2.2-4.8); NEUTROPHILS % (AUTO) 52.4 % (42.0-75.0); PLATELET COUNT 445 X10^3/uL (150.0-450.0); RED BLOOD COUNT 3.73 X10^6/uL (3.5-5.4); RED CELL DISTRIBUTION WIDTH 14.8 % (11.6-16.5); WHITE BLOOD COUNT 9.8 X10^3/uL (3.6-10.0)
[2022-10-07 05:33] LABS: ALANINE AMINOTRANSFERASE 11 Units/L (12-78); ALBUMIN 2.8 g/dL (3.4-5.0); ALKALINE PHOSPHATASE 96 Units/L (46-116); ASPARTATE AMINO TRANSFERASE 6 Units/L (15-37); BLOOD UREA NITROGEN 5 mg/dL (7-18); CALCIUM 7.8 mg/dL (8.5-10.1); CARBON DIOXIDE 24.5 mmol/L (21-32); CHLORIDE 108 mmol/L (98-107); COR CA(FOR HYPOALB) 8.8 mg/dL (8.5-10.1); CREATININE 0.46 mg/dL (0.55-1.02); GLUCOSE 106 mg/dL (65-99); MAGNESIUM 2.1 mg/dL (2.0-2.9); POTASSIUM 4.3 mmol/L (3.5-5.1); SODIUM 141 mmol/L (136-145); TOTAL PROTEIN 5.9 g/dL (6.4-8.2); eGFR NON BLACK RACES > 60 (>60)
[2022-10-07] MEDS: VANCOMYCIN IV *PREMIX 1 G/200 ML BAG 1 G/200 ML PIGGYBACK IV SCH ×3 (05:50→21:41)
[2022-10-07] MEDS: NS + KCL 40 MEQ/L 1,000 ML IV SCH ×3 (05:51→18:50)
--- NOTE | 2022-10-07 09:00 | PCM.PROG ---
Progress Note Progress Note for Day of Date of Exam: 10/06/22 Subjective Subjective: Pt is a 41 year old female admitted for abscess and cellulitis of the left 3rd finger. She is s/p incision and drainage of abscess of the volar distal tuft of the left middle finger and debridement of necrotic skin of this finger. This morning she is sitting up in bed, reports pain in finger. No acute events overnight. Labs/imaging: Wbc 10.8, Hgb 11.7, Plt 445, Na 139, K 3.8, Creatinine 0.51, Glucose 122, Wound culture prelim coagulase positive staph. Pt is currently receiving IV antibiotics: Vancomycin. IV dilaudid prn for pain. Surgery following, recommend IV antibiotics and daily dressing changes over the weekend. Otherwise, continue with current treatment plan. Closely monitor and follow up labs. Past Medical Family Social History Allergies: Allergies No Known Drug Allergies Allergy (Verified 01/12/18 04:16) Review of Systems ROS changes noted: See HPI Vital Signs and I&O's Vital Signs: Temperature 98.7 F Pulse Rate [Right Brachial] 70 Pulse Rate 70 Respiratory Rate 20 Blood Pressure [Left Arm] 130/66 Blood Pressure 154/70 O2 Sat by Pulse Oximetry 95 Intake and Output: Intake & Output 10/04/22 10/05/22 10/06/22 10/07/22 23:59 23:59 23:59 23:59 Intake Total 2531 / 2531 3467 / 3467 3100 / 3100 480 / 480 Output Total 500 / 500 Balance 203 / 2031 3467 / 3467 3100 / 3100 480 / 480 Physical Exam Oriented: Normal, Time, Person, Place and Other (appears to be in pain. ) Eyes: Normal Ear: Normal Nose: Normal Throat: Normal Respiratory: Normal Cardiovascular: Normal : Normal Auscultation: Bowel Sounds: Normal Tenderness: Normal Skin: Other (left middle finger wound dressing) Musculoskeletal: Normal Psychiatric: Normal Mood Description: Calm Affect: Normal Speech Pattern: Clear and Appropriate Laboratory and Diagnostics Result Diagrams: 10/07/22 05:00 10/07/22 05:00 Labs: 10/03/22 23:06 Finger - Left Middle Wound Gram Stain - Final 10/03/22 23:06 Finger - Left Middle Wound Culture - Final Methicillin Resis Staph Aureus 10/04/22 21:23 Finger - Left Middle Wound Gram Stain - Final 10/04/22 21:23 Finger - Left Middle Wound Culture - Final Methicillin Resis Staph Aureus 10/03/22 23:19 Blood Blood Culture - Preliminary 10/03/22 23:13 Blood Blood Culture - Preliminary Laboratory WBC 9.8 X10^3/uL (3.6-10.0) 10/07/22 05:00 RBC 3.73 X10^6/uL (3.5-5.4) 10/07/22 05:00 Hgb 11.2 g/dL (12.0-16.0) L 10/07/22 05:00 Hct 32.2 % (36.0-47.0) L 10/07/22 05:00 MCV 86.5 fL (80.0-100.0) 10/07/22 05:00 MCH 29.9 pg (27.0-34.0) 10/07/22 05:00 MCHC 34.6 g/dL (33.0-35.0) 10/07/22 05:00 RDW 14.8 % (11.6-16.5) 10/07/22 05:00 Plt Count 445 X10^3/uL (150.0-450.0) 10/07/22 05:00 MPV 6.6 fL (7.4-11.0) L 10/07/22 05:00 Neut % (Auto) 52.4 % (42.0-75.0) 10/07/22 05:00 Lymph % (Auto) 38.1 % (21.0-51.0) 10/07/22 05:00 [place] % (Auto) 7.4 % (0.0-13.0) 10/07/22 05:00 Eos % (Auto) 1.1 % (0.9-2.9) 10/07/22 05:00 Baso % (Auto) 1.0 % (0.2-1.0) 10/07/22 05:00 Neut # (Auto) 5.1 x10^3/uL (2.2-4.8) H 10/07/22 05:00 Lymph # (Auto) 3.7 X10^3/uL (1.3-2.9) H 10/07/22 05:00 [place] # (Auto) 0.7 x10^3/uL (0.3-0.8) 10/07/22 05:00 Eos # (Auto) 0.1 x10^3/uL (0.0-0.2) 10/07/22 05:00 Baso # (Auto) 0.1 X10^3/uL (0.0-0.1) 10/07/22 05:00 Absolute Nucleated RBC 0.0 /100WBC 10/07/22 05:00 ESR 46 MM/HOUR (0-20) H 10/03/22 22:54 Sodium 141 mmol/L (136-145) 10/07/22 05:00 Corrected Sodium TNP 10/07/22 05:00 Potassium 4.3 mmol/L (3.5-5.1) 10/07/22 05:00 Chloride 108 mmol/L (98-107) H 10/07/22 05:00 Carbon Dioxide 24.5 mmol/L (21-32) 10/07/22 05:00 BUN 5 mg/dL (7-18) L 10/07/22 05:00 Creatinine 0.46 mg/dL (0.55-1.02) L 10/07/22 05:00 Est GFR (MDRD) Af Amer > 60 (>60) 10/07/22 05:00 Est GFR (MDRD) Non-Af > 60 (>60) 10/07/22 05:00 Glucose 106 mg/dL (65-99) H 10/07/22 05:00 Calcium 7.8 mg/dL (8.5-10.1) L 10/07/22 05:00 Corrected Calcium 8.8 mg/dL (8.5-10.1) 10/07/22 05:00 Magnesium 2.1 mg/dL (2.0-2.9) 10/07/22 05:00 Total Bilirubin 0.10 mg/dL (0.2-1.0) L 10/07/22 05:00 AST 6 Units/L (15-37) L 10/07/22 05:00 ALT 11 Units/L (12-78) L 10/07/22 05:00 Alkaline Phosphatase 96 Units/L (46-116) 10/07/22 05:00 Total Protein 5.9 g/dL (6.4-8.2) L 10/07/22 05:00 Albumin 2.8 g/dL (3.4-5.0) L 10/07/22 05:00 Globulin 3.1 g/dL (2.5-4.5) 10/07/22 05:00 Albumin/Globulin Ratio 0.9 Ratio (1.1-2.1) L 10/07/22 05:00 Vancomycin Trough 13.4 ug/mL (15-20) L 10/06/22 05:10 Plan (1) Cellulitis of finger of left hand: Status: Acute Plan: Antibiotics: IV Vancomycin Wound culture pending Surgery consulted (2) Cellulitis and abscess of finger, unspecified: Status: Acute
[2022-10-07] MEDS: LOVENOX INJ 40 MG SYR SC SCH (10:00)
[2022-10-07] MEDS ORDERED: ATIVAN INJ 2 MG VIAL IVP ONE (14:00)
[2022-10-07 14:45] LABS: CREATININE 0.66 mg/dL (0.55-1.02); VANCOMYCIN,TROUGH 13.1 ug/mL (15-20)
[2022-10-08] MEDS: DILAUDID INJ IVP PRN ×5 (01:08→22:02)
[2022-10-08] MEDS: APRESOLINE INJ 20 MG VIAL IVP SCH ×6 (03:55→23:59)
[2022-10-08] MEDS: NS + KCL 40 MEQ/L 1,000 ML IV SCH ×3 (04:01→20:38)
[2022-10-08] MEDS: VANCOMYCIN IV *PREMIX 1 G/200 ML BAG 1 G/200 ML PIGGYBACK IV SCH ×3 (05:05→22:02)
[2022-10-08 05:18] LABS: BASOPHILS # (AUTO) 0.1 X10^3/uL (0.0-0.1); BASOPHILS % (AUTO) 0.8 % (0.2-1.0); EOSINOPHILS # (AUTO) 0.1 x10^3/uL (0.0-0.2); EOSINOPHILS % (AUTO) 0.8 % (0.9-2.9); HEMATOCRIT 35.3 % (36.0-47.0); HEMOGLOBIN 11.9 g/dL (12.0-16.0); LYMPHOCYTES # (AUTO) 2.9 X10^3/uL (1.3-2.9); LYMPHOCYTES % (AUTO) 25.8 % (21.0-51.0); MEAN CORPUSCULAR HGB CONC 33.6 g/dL (33.0-35.0); MEAN CORPUSCULAR VOLUME 86.1 fL (80.0-100.0); MONOCYTES # (AUTO) 0.5 x10^3/uL (0.3-0.8); MONOCYTES % (AUTO) 4.9 % (0.0-13.0); NEUTROPHILS # (AUTO) 7.6 x10^3/uL (2.2-4.8); NEUTROPHILS % (AUTO) 67.7 % (42.0-75.0); PLATELET COUNT 511 X10^3/uL (150.0-450.0); RED BLOOD COUNT 4.09 X10^6/uL (3.5-5.4); RED CELL DISTRIBUTION WIDTH 14.4 % (11.6-16.5); WHITE BLOOD COUNT 11.2 X10^3/uL (3.6-10.0)
[2022-10-08 05:30] LABS: ALANINE AMINOTRANSFERASE 11 Units/L (12-78); ALBUMIN 2.9 g/dL (3.4-5.0); ALKALINE PHOSPHATASE 98 Units/L (46-116); ASPARTATE AMINO TRANSFERASE 9 Units/L (15-37); BLOOD UREA NITROGEN 5 mg/dL (7-18); CALCIUM 8.5 mg/dL (8.5-10.1); CARBON DIOXIDE 26.4 mmol/L (21-32); CHLORIDE 106 mmol/L (98-107); COR CA(FOR HYPOALB) 9.4 mg/dL (8.5-10.1); CREATININE 0.56 mg/dL (0.55-1.02); GLUCOSE 100 mg/dL (65-99); POTASSIUM 4.6 mmol/L (3.5-5.1); SODIUM 138 mmol/L (136-145); TOTAL PROTEIN 6.1 g/dL (6.4-8.2); eGFR NON BLACK RACES > 60 (>60)
[2022-10-08] MEDS: ZOFRAN INJ 4 MG VIAL IVP PRN (08:37)
--- NOTE | 2022-10-08 09:47 | PCM.PROG ---
Progress Note Progress Note for Day of Date of Exam: 10/07/22 Subjective Subjective: Pt is a 41 year old female admitted for abscess and cellulitis of the left 3rd finger. She is s/p incision and drainage of abscess of the volar distal tuft of the left middle finger and debridement of necrotic skin of this finger. Pt is sitting up in bed this morning. She reports pain in her finger. No acute events overnight. Labs/imaging: Wbc 9.8, Hgb 11.2, Plt 445, Na 141, K 4.3, Creatinine 0.46, Glucose 106, Wound culture positive for MRSA. Pt is currently receiving IV antibiotics: Vancomycin. IV dilaudid prn for pain. Surgery following, recommend IV antibiotics and daily dressing changes over the weekend. Will give 1 dose ativan when changing dressings today to help with anxiety. Otherwise, will continue with current treatment plan. Closely monitor and follow up labs. Past Medical Family Social History Allergies: Allergies No Known Drug Allergies Allergy (Verified 01/12/18 04:16) Review of Systems ROS changes noted: see HPI Vital Signs and I&O's Vital Signs: Temperature 97.8 F Pulse Rate [Right Brachial] 75 Pulse Rate 70 Respiratory Rate 18 Blood Pressure [Left Arm] 175/84 Blood Pressure 154/70 O2 Sat by Pulse Oximetry 99 Intake and Output: Intake & Output 10/05/22 10/06/22 10/07/22 10/08/22 23:59 23:59 23:59 23:59 Intake Total 3467 / 3467 3100 / 3100 2690 / 2690 1380 / 1380 Balance 3467 / 3467 3100 / 3100 2690 / 2690 1380 / 1380 Physical Exam Oriented: Normal, Time, Person, Place and Other (appears to be in pain. ) Eyes: Normal Ear: Normal Nose: Normal Throat: Normal Respiratory: Normal Cardiovascular: Normal : Normal Auscultation: Bowel Sounds: Normal Tenderness: Normal Skin: Other (left middle finger wound dressing) Musculoskeletal: Normal Psychiatric: Normal Mood Description: Calm Affect: Normal Speech Pattern: Clear and Appropriate Laboratory and Diagnostics Result Diagrams: 10/08/22 04:40 10/08/22 04:40 Labs: 10/03/22 23:06 Finger - Left Middle Wound Gram Stain - Final 10/03/22 23:06 Finger - Left Middle Wound Culture - Final Methicillin Resis Staph Aureus 10/04/22 21:23 Finger - Left Middle Wound Gram Stain - Final 10/04/22 21:23 Finger - Left Middle Wound Culture - Final Methicillin Resis Staph Aureus 10/03/22 23:19 Blood Blood Culture - Preliminary 10/03/22 23:13 Blood Blood Culture - Preliminary Laboratory WBC 11.2 X10^3/uL (3.6-10.0) H 10/08/22 04:40 RBC 4.09 X10^6/uL (3.5-5.4) 10/08/22 04:40 Hgb 11.9 g/dL (12.0-16.0) L 10/08/22 04:40 Hct 35.3 % (36.0-47.0) L 10/08/22 04:40 MCV 86.1 fL (80.0-100.0) 10/08/22 04:40 MCH 29.0 pg (27.0-34.0) 10/08/22 04:40 MCHC 33.6 g/dL (33.0-35.0) 10/08/22 04:40 RDW 14.4 % (11.6-16.5) 10/08/22 04:40 Plt Count 511 X10^3/uL (150.0-450.0) H 10/08/22 04:40 MPV 7.0 fL (7.4-11.0) L 10/08/22 04:40 Neut % (Auto) 67.7 % (42.0-75.0) 10/08/22 04:40 Lymph % (Auto) 25.8 % (21.0-51.0) 10/08/22 04:40 [place] % (Auto) 4.9 % (0.0-13.0) 10/08/22 04:40 Eos % (Auto) 0.8 % (0.9-2.9) L 10/08/22 04:40 Baso % (Auto) 0.8 % (0.2-1.0) 10/08/22 04:40 Neut # (Auto) 7.6 x10^3/uL (2.2-4.8) H 10/08/22 04:40 Lymph # (Auto) 2.9 X10^3/uL (1.3-2.9) 10/08/22 04:40 [place] # (Auto) 0.5 x10^3/uL (0.3-0.8) 10/08/22 04:40 Eos # (Auto) 0.1 x10^3/uL (0.0-0.2) 10/08/22 04:40 Baso # (Auto) 0.1 X10^3/uL (0.0-0.1) 10/08/22 04:40 Absolute Nucleated RBC 0.1 /100WBC 10/08/22 04:40 ESR 46 MM/HOUR (0-20) H 10/03/22 22:54 Sodium 138 mmol/L (136-145) 10/08/22 04:40 Corrected Sodium TNP 10/08/22 04:40 Potassium 4.6 mmol/L (3.5-5.1) 10/08/22 04:40 Chloride 106 mmol/L (98-107) 10/08/22 04:40 Carbon Dioxide 26.4 mmol/L (21-32) 10/08/22 04:40 BUN 5 mg/dL (7-18) L 10/08/22 04:40 Creatinine 0.56 mg/dL (0.55-1.02) 10/08/22 04:40 Est GFR (MDRD) Af Amer > 60 (>60) 10/08/22 04:40 Est GFR (MDRD) Non-Af > 60 (>60) 10/08/22 04:40 Glucose 100 mg/dL (65-99) H 10/08/22 04:40 Calcium 8.5 mg/dL (8.5-10.1) 10/08/22 04:40 Corrected Calcium 9.4 mg/dL (8.5-10.1) 10/08/22 04:40 Magnesium 2.1 mg/dL (2.0-2.9) 10/07/22 05:00 Total Bilirubin 0.10 mg/dL (0.2-1.0) L 10/08/22 04:40 AST 9 Units/L (15-37) L 10/08/22 04:40 ALT 11 Units/L (12-78) L 10/08/22 04:40 Alkaline Phosphatase 98 Units/L (46-116) 10/08/22 04:40 Total Protein 6.1 g/dL (6.4-8.2) L 10/08/22 04:40 Albumin 2.9 g/dL (3.4-5.0) L 10/08/22 04:40 Globulin 3.2 g/dL (2.5-4.5) 10/08/22 04:40 Albumin/Globulin Ratio 0.9 Ratio (1.1-2.1) L 10/08/22 04:40 Vancomycin Trough 13.1 ug/mL (15-20) L 10/07/22 14:20 Plan (1) Cellulitis of finger of left hand: Status: Acute Plan: Antibiotics: IV Vancomycin Wound culture positive MRSA Surgery consulted Daily dressing changes (2) Cellulitis and abscess of finger, unspecified: Status: Acute
[2022-10-08] MEDS: LOVENOX INJ 40 MG SYR SC SCH (10:00)
[2022-10-08] MEDS ORDERED: TYLENOL 325 MG TAB PO PRN (10:28)
--- NOTE | 2022-10-08 10:50 | PCM.PROG ---
Progress Note Progress Note for Day of Date of Exam: 10/08/22 Subjective Subjective: Pt is a 41 year old female admitted for abscess and cellulitis of the left 3rd finger. She is s/p incision and drainage of abscess of the volar distal tuft of the left middle finger and debridement of necrotic skin of this finger. Pt was able to tolerate wound dressing yesterday. Pt reports feeling better today. No acute events overnight. Labs/imaging: Wbc 11.2, Hgb 11.9, Plt 511, Na 138, K 4.6, Creatinine 0.56, Glucose 100, Wound culture positive for MRSA. Pt is currently receiving IV antibiotics: Vancomycin. IV dilaudid prn for pain. Surgery following, recommend IV antibiotics and daily dressing changes over the weekend. Will continue with current treatment plan. Closely monitor and follow up labs. Past Medical Family Social History Allergies: Allergies No Known Drug Allergies Allergy (Verified 01/12/18 04:16) Review of Systems ROS changes noted: see HPI Vital Signs and I&O's Vital Signs: Temperature 98.1 F Pulse Rate [Right Brachial] 81 Pulse Rate 70 Respiratory Rate 18 Blood Pressure [Left Arm] 149/89 Blood Pressure 154/70 O2 Sat by Pulse Oximetry 97 Intake and Output: Intake & Output 10/05/22 10/06/22 10/07/22 10/08/22 23:59 23:59 23:59 23:59 Intake Total 3467 / 3467 3100 / 3100 2690 / 2690 1380 / 1380 Balance 3467 / 3467 3100 / 3100 2690 / 2690 1380 / 1380 Physical Exam Oriented: Normal, Time, Person, Place and Other (appears to be in pain. ) Eyes: Normal Ear: Normal Nose: Normal Throat: Normal Respiratory: Normal Cardiovascular: Normal : Normal Auscultation: Bowel Sounds: Normal Tenderness: Normal Skin: Other (left middle finger wound dressing) Musculoskeletal: Normal Psychiatric: Normal Mood Description: Calm Affect: Normal Speech Pattern: Clear and Appropriate Laboratory and Diagnostics Result Diagrams: 10/08/22 04:40 10/08/22 04:40 Labs: 10/03/22 23:06 Finger - Left Middle Wound Gram Stain - Final 10/03/22 23:06 Finger - Left Middle Wound Culture - Final Methicillin Resis Staph Aureus 10/04/22 21:23 Finger - Left Middle Wound Gram Stain - Final 10/04/22 21:23 Finger - Left Middle Wound Culture - Final Methicillin Resis Staph Aureus 10/03/22 23:19 Blood Blood Culture - Preliminary 10/03/22 23:13 Blood Blood Culture - Preliminary Laboratory WBC 11.2 X10^3/uL (3.6-10.0) H 10/08/22 04:40 RBC 4.09 X10^6/uL (3.5-5.4) 10/08/22 04:40 Hgb 11.9 g/dL (12.0-16.0) L 10/08/22 04:40 Hct 35.3 % (36.0-47.0) L 10/08/22 04:40 MCV 86.1 fL (80.0-100.0) 10/08/22 04:40 MCH 29.0 pg (27.0-34.0) 10/08/22 04:40 MCHC 33.6 g/dL (33.0-35.0) 10/08/22 04:40 RDW 14.4 % (11.6-16.5) 10/08/22 04:40 Plt Count 511 X10^3/uL (150.0-450.0) H 10/08/22 04:40 MPV 7.0 fL (7.4-11.0) L 10/08/22 04:40 Neut % (Auto) 67.7 % (42.0-75.0) 10/08/22 04:40 Lymph % (Auto) 25.8 % (21.0-51.0) 10/08/22 04:40 [place] % (Auto) 4.9 % (0.0-13.0) 10/08/22 04:40 Eos % (Auto) 0.8 % (0.9-2.9) L 10/08/22 04:40 Baso % (Auto) 0.8 % (0.2-1.0) 10/08/22 04:40 Neut # (Auto) 7.6 x10^3/uL (2.2-4.8) H 10/08/22 04:40 Lymph # (Auto) 2.9 X10^3/uL (1.3-2.9) 10/08/22 04:40 [place] # (Auto) 0.5 x10^3/uL (0.3-0.8) 10/08/22 04:40 Eos # (Auto) 0.1 x10^3/uL (0.0-0.2) 10/08/22 04:40 Baso # (Auto) 0.1 X10^3/uL (0.0-0.1) 10/08/22 04:40 Absolute Nucleated RBC 0.1 /100WBC 10/08/22 04:40 ESR 46 MM/HOUR (0-20) H 10/03/22 22:54 Sodium 138 mmol/L (136-145) 10/08/22 04:40 Corrected Sodium TNP 10/08/22 04:40 Potassium 4.6 mmol/L (3.5-5.1) 10/08/22 04:40 Chloride 106 mmol/L (98-107) 10/08/22 04:40 Carbon Dioxide 26.4 mmol/L (21-32) 10/08/22 04:40 BUN 5 mg/dL (7-18) L 10/08/22 04:40 Creatinine 0.56 mg/dL (0.55-1.02) 10/08/22 04:40 Est GFR (MDRD) Af Amer > 60 (>60) 10/08/22 04:40 Est GFR (MDRD) Non-Af > 60 (>60) 10/08/22 04:40 Glucose 100 mg/dL (65-99) H 10/08/22 04:40 Calcium 8.5 mg/dL (8.5-10.1) 10/08/22 04:40 Corrected Calcium 9.4 mg/dL (8.5-10.1) 10/08/22 04:40 Magnesium 2.1 mg/dL (2.0-2.9) 10/07/22 05:00 Total Bilirubin 0.10 mg/dL (0.2-1.0) L 10/08/22 04:40 AST 9 Units/L (15-37) L 10/08/22 04:40 ALT 11 Units/L (12-78) L 10/08/22 04:40 Alkaline Phosphatase 98 Units/L (46-116) 10/08/22 04:40 Total Protein 6.1 g/dL (6.4-8.2) L 10/08/22 04:40 Albumin 2.9 g/dL (3.4-5.0) L 10/08/22 04:40 Globulin 3.2 g/dL (2.5-4.5) 10/08/22 04:40 Albumin/Globulin Ratio 0.9 Ratio (1.1-2.1) L 10/08/22 04:40 Vancomycin Trough 13.1 ug/mL (15-20) L 10/07/22 14:20 Plan (1) Cellulitis of finger of left hand: Status: Acute Plan: Antibiotics: IV Vancomycin Wound culture positive MRSA Surgery consulted Daily dressing changes (2) Cellulitis and abscess of finger, unspecified: Status: Acute
[2022-10-08] MEDS ORDERED: ATIVAN INJ 2 MG VIAL IVP ONE (13:30)
[2022-10-08] MEDS ORDERED: NEOSPORIN OINT ONE (17:59)
--- NOTE | 2022-10-08 23:35 | NOTE.SOAP ---
Soap Note Note for Day of Date of Exam: 10/08/22 Subjective Data Subjective Data: Patient continues to improve . Objective Data Temperature: 98.7 F Pulse Rate: 78 Respiratory Rate: 20 Blood Pressure: 178/86 O2 Sat by Pulse Oximetry: 99 Objective Data: Left middle finger is improved with nearly resolved . Incision volar left middle finger distal phalanx with dry crust. Culture positive for MRSA sensitive to the Vancomycin. Dressing changed by me today. Assessment Assessment: Abscess/ cellulitis left middle finger improving. Plan Plan: Probably d/c home tomorrow on po antibiotics and dressing changes.
[2022-10-09] MEDS: NS + KCL 40 MEQ/L 1,000 ML IV SCH (01:02)
[2022-10-09] MEDS: DILAUDID INJ IVP PRN (02:04)
[2022-10-09] MEDS: APRESOLINE INJ 20 MG VIAL IVP SCH ×2 (04:30→09:30)
[2022-10-09 05:00] LABS: BASOPHILS # (AUTO) 0.2 X10^3/uL (0.0-0.1); BASOPHILS % (AUTO) 1.5 % (0.2-1.0); EOSINOPHILS # (AUTO) 0.2 x10^3/uL (0.0-0.2); EOSINOPHILS % (AUTO) 1.4 % (0.9-2.9); HEMATOCRIT 34.7 % (36.0-47.0); HEMOGLOBIN 11.9 g/dL (12.0-16.0); LYMPHOCYTES # (AUTO) 4.7 X10^3/uL (1.3-2.9); LYMPHOCYTES % (AUTO) 40.3 % (21.0-51.0); MEAN CORPUSCULAR HEMOGLOBIN 29.8 pg (27.0-34.0); MEAN CORPUSCULAR HGB CONC 34.2 g/dL (33.0-35.0); MEAN CORPUSCULAR VOLUME 86.9 fL (80.0-100.0); MONOCYTES # (AUTO) 0.8 x10^3/uL (0.3-0.8); MONOCYTES % (AUTO) 6.4 % (0.0-13.0); NEUTROPHILS # (AUTO) 5.9 x10^3/uL (2.2-4.8); NEUTROPHILS % (AUTO) 50.4 % (42.0-75.0); PLATELET COUNT 541 X10^3/uL (150.0-450.0); RED BLOOD COUNT 3.99 X10^6/uL (3.5-5.4); RED CELL DISTRIBUTION WIDTH 14.7 % (11.6-16.5); WHITE BLOOD COUNT 11.7 X10^3/uL (3.6-10.0)
[2022-10-09] MEDS: VANCOMYCIN IV *PREMIX 1 G/200 ML BAG 1 G/200 ML PIGGYBACK IV SCH (05:08)
[2022-10-09 05:15] LABS: ALANINE AMINOTRANSFERASE 11 Units/L (12-78); ALBUMIN 2.8 g/dL (3.4-5.0); ALKALINE PHOSPHATASE 91 Units/L (46-116); ASPARTATE AMINO TRANSFERASE 6 Units/L (15-37); BLOOD UREA NITROGEN 11 mg/dL (7-18); CALCIUM 8.5 mg/dL (8.5-10.1); CARBON DIOXIDE 27.2 mmol/L (21-32); CHLORIDE 106 mmol/L (98-107); COR CA(FOR HYPOALB) 9.5 mg/dL (8.5-10.1); COR NA(FOR HYPERGLY) 140 mmol/L (136-145); GLUCOSE 123 mg/dL (65-99); POTASSIUM 4.5 mmol/L (3.5-5.1); SODIUM 139 mmol/L (136-145); eGFR NON BLACK RACES > 60 (>60)
[2022-10-09 08:20] VITALS: BP 164/90
[2022-10-09] MEDS ORDERED: PERCOCET TAB 5/325 MG PO NR (09:00)
[2022-10-09] MEDS: LOVENOX INJ 40 MG SYR SC SCH (09:34)
--- NOTE | 2022-10-12 16:35 | W.DIS.FURT ---
Summary of Discharge Discharge Summary of Date Date of Exam: 10/09/22 Admission Date Date of Admission: 10/03/22 Admission Diagnosis Patient Problems (Updated 10/11/22 @ 19:00 by Jostin Khan) Cellulitis of finger of left hand (Acute) L03.012 Hypokalemia (Acute) E87.6 Hospital Course: Pt is a 41 year old female admitted for abscess and cellulitis of the left 3rd finger. Her hospital/treatment course included incision and drainage of abscess of the volar distal tuft of the left middle finger and debridement of necrotic skin of the finger. Wound culture positive for MRSA. She received IV antib iotics: Vancomycin. IV dilaudid prn for pain. Pt had daily dressing changes. She responded well to treatments. Pt discharged in stable condition, rx bactrim. Instructed to follow up with pcp and Surgery-Dr Lloyd in 1 week. Vital Signs: Vital Signs (72 hours) 10/08/22 23:34 10/06/22 10:22 10/06/22 11:49 Temperature 98.7 F 97.3 F L Pulse Rate 78 Pulse Rate [Right Brachial] 78 Respiratory Rate 20 18 Blood Pressure 178/86 Blood Pressure [Left Arm] 177/93 187/88 Blood Pressure [Right Arm] O2 Sat by Pulse Oximetry 99 96 Oxygen Delivery Method 10/06/22 13:26 10/06/22 12:15 10/06/22 13:56 Temperature 97.3 F L Pulse Rate Pulse Rate [Right Brachial] 78 Respiratory Rate 20 18 20 Blood Pressure Blood Pressure [Left Arm] 151/86 Blood Pressure [Right Arm] O2 Sat by Pulse Oximetry 96 Oxygen Delivery Method 10/06/22 15:59 10/06/22 18:04 10/06/22 18:31 Temperature 97.9 F Pulse Rate Pulse Rate [Right Brachial] 76 Respiratory Rate 18 18 20 Blood Pressure Blood Pressure [Left Arm] 159/89 Blood Pressure [Right Arm] O2 Sat by Pulse Oximetry 98 Oxygen Delivery Method 10/06/22 22:00 10/06/22 19:00 10/06/22 20:00 Temperature 98.4 F Pulse Rate Pulse Rate [Right Brachial] 73 Respiratory Rate 20 23 Blood Pressure Blood Pressure [Left Arm] 184/110 Blood Pressure [Right Arm] O2 Sat by Pulse Oximetry 95 Oxygen Delivery Method Room Air 10/06/22 21:00 10/06/22 21:05 10/06/22 21:15 Temperature Pulse Rate Pulse Rate [Right Brachial] 69 68 Respiratory Rate Blood Pressure Blood Pressure [Left Arm] 172/96 151/84 142/69 Blood Pressure [Right Arm] O2 Sat by Pulse Oximetry Oxygen Delivery Method 10/06/22 21:30 10/06/22 21:45 10/06/22 22:30 Temperature Pulse Rate Pulse Rate [Right Brachial] 66 Respiratory Rate 20 Blood Pressure Blood Pressure [Left Arm] 144/68 139/75 Blood Pressure [Right Arm] O2 Sat by Pulse Oximetry Oxygen Delivery Method 10/07/22 00:00 10/07/22 00:40 10/07/22 00:45 Temperature 97.9 F Pulse Rate Pulse Rate [Right Brachial] 63 Respiratory Rate 18 Blood Pressure Blood Pressure [Left Arm] 171/86 183/88 180/82 Blood Pressure [Right Arm] O2 Sat by Pulse Oximetry 96 Oxygen Delivery Method 10/07/22 01:15 10/07/22 01:30 10/07/22 01:00 Temperature Pulse Rate Pulse Rate [Right Brachial] Respiratory Rate Blood Pressure Blood Pressure [Left Arm] 166/72 147/77 158/76 Blood Pressure [Right Arm] O2 Sat by Pulse Oximetry Oxygen Delivery Method 10/07/22 04:09 10/07/22 04:00 10/07/22 04:15 Temperature 98.7 F Pulse Rate Pulse Rate [Right Brachial] 70 Respiratory Rate 18 18 Blood Pressure Blood Pressure [Left Arm] 183/82 157/72 Blood Pressure [Right Arm] O2 Sat by Pulse Oximetry 95 Oxygen Delivery Method 10/07/22 04:30 10/07/22 04:45 10/07/22 05:00 Temperature Pulse Rate Pulse Rate [Right Brachial] Respiratory Rate Blood Pressure Blood Pressure [Left Arm] 143/65 140/62 130/66 Blood Pressure [Right Arm] O2 Sat by Pulse Oximetry Oxygen Delivery Method 10/07/22 04:39 10/07/22 08:14 10/07/22 07:00 Temperature Pulse Rate Pulse Rate [Right Brachial] Respiratory Rate 20 20 Blood Pressure Blood Pressure [Left Arm] Blood Pressure [Right Arm] O2 Sat by Pulse Oximetry Oxygen Delivery Method Room Air 10/07/22 08:00 10/07/22 08:44 10/07/22 12:00 Temperature 97.9 F 98.4 F Pulse Rate Pulse Rate [Right Brachial] 74 84 Respiratory Rate 18 20 18 Blood Pressure Blood Pressure [Left Arm] 138/100 125/62 Blood Pressure [Right Arm] O2 Sat by Pulse Oximetry 98 97 Oxygen Delivery Method Room Air Room Air 10/07/22 16:00 10/07/22 13:45 10/07/22 14:15 Temperature 97.7 F Pulse Rate Pulse Rate [Right Brachial] 82 Respiratory Rate 18 18 20 Blood Pressure Blood Pressure [Left Arm] 137/88 Blood Pressure [Right Arm] O2 Sat by Pulse Oximetry 94 L Oxygen Delivery Method Room Air 10/07/22 21:28 10/07/22 21:58 10/07/22 20:00 Temperature 97.8 F Pulse Rate Pulse Rate [Right Brachial] 83 Respiratory Rate 18 14 18 Blood Pressure Blood Pressure [Left Arm] 170/91 Blood Pressure [Right Arm] O2 Sat by Pulse Oximetry 97 Oxygen Delivery Method Room Air 10/07/22 20:30 10/07/22 19:00 10/08/22 00:00 Temperature 97.8 F Pulse Rate Pulse Rate [Right Brachial] 68 Respiratory Rate 18 Blood Pressure Blood Pressure [Left Arm] 138/72 136/65 Blood Pressure [Right Arm] O2 Sat by Pulse Oximetry 97 Oxygen Delivery Method Room Air Room Air 10/08/22 01:08 10/08/22 01:38 10/08/22 04:00 Temperature 97.8 F Pulse Rate Pulse Rate [Right Brachial] 75 Respiratory Rate 12 12 18 Blood Pressure Blood Pressure [Left Arm] 175/84 Blood Pressure [Right Arm] O2 Sat by Pulse Oximetry 99 Oxygen Delivery Method Room Air 10/08/22 07:00 10/08/22 08:45 10/08/22 08:00 Temperature 98.1 F Pulse Rate Pulse Rate [Right Brachial] 81 Respiratory Rate 18 24 Blood Pressure Blood Pressure [Left Arm] 149/89 Blood Pressure [Right Arm] O2 Sat by Pulse Oximetry 97 Oxygen Delivery Method Room Air Room Air 10/08/22 13:11 10/08/22 12:00 10/08/22 16:00 Temperature 98.4 F 97.7 F Pulse Rate Pulse Rate [Right Brachial] 84 86 Respiratory Rate 18 20 20 Blood Pressure Blood Pressure [Left Arm] 189/98 142/84 Blood Pressure [Right Arm] O2 Sat by Pulse Oximetry 94 L 97 Oxygen Delivery Method Room Air Room Air 10/08/22 18:00 10/08/22 19:00 10/08/22 20:00 Temperature 98.7 F Pulse Rate Pulse Rate [Right Brachial] 78 Respiratory Rate 20 20 Blood Pressure Blood Pressure [Left Arm] 178/86 Blood Pressure [Right Arm] O2 Sat by Pulse Oximetry 99 Oxygen Delivery Method Room Air Room Air 10/08/22 22:02 10/08/22 22:32 10/08/22 23:31 Temperature 98.0 F Pulse Rate Pulse Rate [Right Brachial] 76 Respiratory Rate 20 18 22 Blood Pressure Blood Pressure [Left Arm] Blood Pressure [Right Arm] 176/85 O2 Sat by Pulse Oximetry 97 Oxygen Delivery Method Room Air 10/09/22 02:04 10/09/22 02:34 10/09/22 04:00 Temperature 98.1 F Pulse Rate Pulse Rate [Right Brachial] 67 Respiratory Rate 18 18 20 Blood Pressure Blood Pressure [Left Arm] Blood Pressure [Right Arm] 142/76 O2 Sat by Pulse Oximetry 96 Oxygen Delivery Method Room Air 10/09/22 08:00 Temperature 97.7 F Pulse Rate Pulse Rate [Right Brachial] 74 Respiratory Rate 18 Blood Pressure Blood Pressure [Left Arm] Blood Pressure [Right Arm] 164/90 O2 Sat by Pulse Oximetry 96 Oxygen Delivery Method Room Air Labs: Laboratory Last Values WBC 11.7 X10^3/uL (3.6-10.0) H 10/09/22 04:35 RBC 3.99 X10^6/uL (3.5-5.4) 10/09/22 04:35 Hgb 11.9 g/dL (12.0-16.0) L 10/09/22 04:35 Hct 34.7 % (36.0-47.0) L 10/09/22 04:35 MCV 86.9 fL (80.0-100.0) 10/09/22 04:35 MCH 29.8 pg (27.0-34.0) 10/09/22 04:35 MCHC 34.2 g/dL (33.0-35.0) 10/09/22 04:35 RDW 14.7 % (11.6-16.5) 10/09/22 04:35 Plt Count 541 X10^3/uL (150.0-450.0) H 10/09/22 04:35 MPV 7.0 fL (7.4-11.0) L 10/09/22 04:35 Neut % (Auto) 50.4 % (42.0-75.0) 10/09/22 04:35 Lymph % (Auto) 40.3 % (21.0-51.0) 10/09/22 04:35 Otoe % (Auto) 6.4 % (0.0-13.0) 10/09/22 04:35 Eos % (Auto) 1.4 % (0.9-2.9) 10/09/22 04:35 Baso % (Auto) 1.5 % (0.2-1.0) H 10/09/22 04:35 Neut # (Auto) 5.9 x10^3/uL (2.2-4.8) H 10/09/22 04:35 Lymph # (Auto) 4.7 X10^3/uL (1.3-2.9) H 10/09/22 04:35 Otoe # (Auto) 0.8 x10^3/uL (0.3-0.8) 10/09/22 04:35 Eos # (Auto) 0.2 x10^3/uL (0.0-0.2) 10/09/22 04:35 Baso # (Auto) 0.2 X10^3/uL (0.0-0.1) H 10/09/22 04:35 Absolute Nucleated RBC 0.0 /100WBC 10/09/22 04:35 ESR 46 MM/HOUR (0-20) H 10/03/22 22:54 Sodium 139 mmol/L (136-145) 10/09/22 04:35 Corrected Sodium 140 mmol/L (136-145) 10/09/22 04:35 Potassium 4.5 mmol/L (3.5-5.1) 10/09/22 04:35 Chloride 106 mmol/L (98-107) 10/09/22 04:35 Carbon Dioxide 27.2 mmol/L (21-32) 10/09/22 04:35 BUN 11 mg/dL (7-18) 10/09/22 04:35 Creatinine 0.70 mg/dL (0.55-1.02) 10/09/22 04:35 Est GFR (MDRD) Af Amer > 60 (>60) 10/09/22 04:35 Est GFR (MDRD) Non-Af > 60 (>60) 10/09/22 04:35 Glucose 123 mg/dL (65-99) H 10/09/22 04:35 Calcium 8.5 mg/dL (8.5-10.1) 10/09/22 04:35 Corrected Calcium 9.5 mg/dL (8.5-10.1) 10/09/22 04:35 Magnesium 2.1 mg/dL (2.0-2.9) 10/07/22 05:00 Total Bilirubin 0.10 mg/dL (0.2-1.0) L 10/09/22 04:35 AST 6 Units/L (15-37) L 10/09/22 04:35 ALT 11 Units/L (12-78) L 10/09/22 04:35 Alkaline Phosphatase 91 Units/L (46-116) 10/09/22 04:35 Total Protein 6.0 g/dL (6.4-8.2) L 10/09/22 04:35 Albumin 2.8 g/dL (3.4-5.0) L 10/09/22 04:35 Globulin 3.2 g/dL (2.5-4.5) 10/09/22 04:35 Albumin/Globulin Ratio 0.9 Ratio (1.1-2.1) L 10/09/22 04:35 Vancomycin Trough 13.1 ug/mL (15-20) L 10/07/22 14:20 Reason For Visit: CELLULITIS LEFT MIDDLE FINGER, PAIN Discharge Diagnosis All Active Problems (Updated 10/11/22 @ 19:00 by Jostin Khan) Vomiting (Acute) Cellulitis and abscess of finger, unspecified (Acute) Chest pain (Acute) Bronchitis (Acute) Dyspepsia (Acute) Sinus bradycardia (Acute) Bronchitis, acute (Acute) Sinusitis, acute ethmoidal (Acute) Bronchospasm with bronchitis, acute (Acute) Fracture of humerus, condyle, left, closed (Acute) Contusion of right wrist (Acute) Contusion of knee, right (Acute) Fall (Acute) Gastritis (Acute) Suicidal ideations (Acute) History of depression (Acute) Thigh ulcer (Acute) Cellulitis of finger of left hand (Acute) Hypokalemia (Acute) Plan of Treatment: Continue with present treatment and follow up plan. Pt is to keep follow up appointment as instructed and take medications as ordered. Discharge Medications Discharge Medications: No Known Drug Allergies Allergy (Verified 01/12/18 04:16) New Prescriptions oxycodone 5 mg tablet 5 mg PO TID PRN 10 days #30 tabs 10/09/22 [Rx] sulfamethoxazole 800 mg-trimethoprim 160 mg tablet (Bactrim DS) 1 tab PO BID 7 days #14 tabs 10/09/22 [Rx] Discharge Plan Discharge Plan Hospital Course: Pt is a 41 year old female admitted for abscess and cellulitis of the left 3rd finger. Her hospital/treatment course included incision and drainage of abscess of the volar distal tuft of the left middle finger and debridement of necrotic skin of the finger. Wound culture positive for MRSA. She received IV antibiotics: Vancomycin. IV dilaudid prn for pain. Pt had daily dressing changes. She responded well to treatments. Pt discharged in stable condition, rx bactrim. Instructed to follow up with pcp and Surgery-Dr Lloyd in 1 week. Patient Disposition: 01 HOME, SELF-CARE Condition: Stable Health Concerns: Post Hospitalization: new medications and changes needed to prevent readmission or further decline. Pt educated and given instructions on all concerns. Care Plan Goals: Problem: Infection Goal: Temperature within normal limits. Resolved infection. Instructions: Follow provided instructions. Follow up with primary physician as directed. Contact primary care physician or report to the closest Emergency Room if condition worsens. Plan of Treatment: Continue with present treatment and follow up plan. Pt is to keep follow up appointment as instructed and take medications as ordered. Prescriptions: New sulfamethoxazole-trimethoprim [Bactrim DS] 800-160 mg tablet 1 tab PO BID 7 Days Qty: 14 0RF oxycodone 5 mg tablet 5 mg PO TID MDD 3 PRN10 Days Qty: 30 0RF amlodipine [Norvasc] 5 mg Tablet 5 mg PO QDAY Qty: 30 0RF Rx Instructions: Take one tab daily No Action doxycycline hyclate 100 mg capsule 100 mg PO BID 7 Days Qty: 14 0RF sucralfate 1 gram tablet 1 g PO QID 4 Days Qty: 16 0RF ondansetron 4 mg tablet,disintegrating 4 mg translingual Q6H PRN (Reason: nausea and vomiting) 2 Days Qty: 8 1RF omeprazole 20 mg capsule,delayed release(DR/EC) 20 mg PO QDAY 7 Days Qty: 7 0RF Follow ups/Referrals Follow ups/Referrals: Jovani Gonsalez [STAFF PHYSICIAN] - 1 WEEK Juan Lloyd [STAFF PHYSICIAN] - 10/18/22 9:00 am Instructions Instructions: Steps to Quit Smoking, [id number], Cellulitis, Adult, [id number], Incision and Drainage, Care After, Hypertension, Adult, [id number] Stand Alone Forms: Excuse From Work or School
== END 2022-10-09 10:30 | disposition home or self-care (01) | DRG 603 ==
LOC: ER 22:18 → MED/SURG 22:18 → OBSVTOIN 10-04 02:43 → MED/SURG 10-04 03:22
PROVIDERS: ADMIT Family Medicine; ATTEND Family Medicine
DX: L02.512 Cutaneous abscess of left hand; E87.6 Hypokalemia; B95.62 Methicillin resistant Staphylococcus aureus infection as the cause of diseases classified elsewhere; L03.012 Cellulitis of left finger